=== PATIENT | female | born 1995 | race Caucasian/White ===

== ENCOUNTER → 2017-06-29 14:14 | Outpatient (CLI) | payer OTHER, SELFPAY ==
[2017-06-29 14:40] LABS: Basophils % 0.3 % (0.1-2.0); Eosinophils # 0.2 K/mm3 (0.0-0.4); Eosinophils % 2.1 % (0.1-12.0); Hematocrit 37.7 % (37.0-47.0); Hemoglobin 12.3 g/dL (12.2-16.2); Lymphocytes # 1.6 K/mm3 (0.7-4.5); Lymphocytes % 21.2 K/mm3 (10-50); Mean Corpuscular HGB Conc 32.5 g/dL (31.8-35.4); Mean Corpuscular Hemoglobin 27.8 pg (27.0-31.2); Mean Corpuscular Volume 85.4 fl (81-99); Mean Platelet Volume 7.3 fl (7.4-10.4); Monocytes # 0.3 K/mm3 (0.1-1.0); Neutrophils # 5.4 K/mm3 (1.8-7.8); Neutrophils % 72.3 % (37.0-80.0); Platelet Count 253 K/mm3 (142-424); Red Blood Count 4.41 M/mm3 (4.20-5.40); Red Cell Distribution Width 13.7 % (11.5-17.5); White Blood Count 7.5 K/mm3 (4.8-10.8)
[2017-06-29 15:33] LABS: Alanine Aminotransferase 18 U/L (12-78); Albumin Level 3.7 gm/dL (3.4-5.0); Alkaline Phosphatase 89 U/L (46-116); Anion Gap 11.1 mEq/L (5-15); Aspartate Amino Transferase 14 U/L (15-37); Bilirubin,Total 0.3 mg/dL (0.2-1.0); Blood Urea Nitrogen 18 mg/dL (7-18); Calcium 8.9 mg/dL (8.5-10.1); Carbon Dioxide 28 mmol/L (21.0-32.0); Chloride 108 mmol/L (98-107); Creatinine,Serum 0.73 mg/dL (0.55-1.02); Estimated Glomerular Filt Rate 99 ml/min (>60); GFR (African American) 120 ML/MIN (>60); Globulin 3.6 gm/dl (1.3-3.2); Glucose 82 mg/dL (74-106); Potassium 4.1 mmoL/L (3.5-5.1); Sodium 143 mmol/L (136-145); Total Protein,Serum 7.3 gm/dL (6.4-8.2)
[2017-06-29 18:29] LABS: Activated Partial Thrombo Time 26.8 seconds (23.6-34.0); INR 0.98 (0.9-1.1); Prothrombin Time 10.6 seconds (9.4-11.8)
[2017-07-02 10:17] LABS: Factor VIII Activity 107 % (57-163); PTT-LA 36.1 sec (0.0-51.9); dRVVT 41.3 sec (0.0-47.0)
[2017-07-02 11:10] LABS: Factor V Activity 117 % (70-150); von Willebrand Factor (vWF) Ag 90 % (50-200)
[2017-07-02 14:19] LABS: Lupus Reflex Interpretation Comment: (.)
== END ==
PROVIDERS: PCP Physician Assistant; Visit Provider Physician Assistant
DX: T14.8XXA Other injury of unspecified body region, initial encounter (principal)
CPT/HCPCS: 36415; 80053; 85025; 85220; 85240; 85245; 85610; 85613; 85730